=== PATIENT | female | born 1985 | race African-American/Black ===

== ENCOUNTER 2017-08-22 16:07 | Inpatient (IN) | payer OTHER ==
[~2017-08-22] VITALS: Ht 152.4 cm; Wt 78.9 kg
[2017-08-22] MEDS: TERBUTALINE SULFATE 1MG/ML VIAL SUBCUT PRN ×2 (16:48→17:58)
[2017-08-22] MEDS: LACTATED RINGERS 1,000 ML IV SCH ×4 (17:03→23:51)
[2017-08-22 17:05] LABS: BASOPHILS % 0.3 % (0.0-2.0); EOSINOPHILS % 0.5 % (0.0-5.0); HEMATOCRIT. 32.5 % (36.0-48.0); HEMOGLOBIN. 10.8 g/dL (12.0-16.0); LYMPHOCYTES % 16.7 % (20.0-50.0); MEAN CORPUSCULAR HEMOGLOBIN 28.6 pg (28.0-32.0); MEAN PLATELET VOLUME 10.1 fl (7.4-10.4); MONOCYTES % 8.7 % (2.0-8.0); NEUTROPHILS % 73.8 % (40.0-76.0); PLATELET 179 x1000/uL (130-400); RED BLOOD CELL COUNT 3.78 mill/uL (4.2-5.4); RED CELL DISTRIBUTION WIDTH 13.9 % (11.6-14.6)
[2017-08-22] MEDS ORDERED: DEXT 5%/LR + PITOCIN 20UNITS/L 1,000 ML IV SCH (17:13)
[2017-08-22] MEDS ORDERED: BUTORPHANOL TARTRATE 2 MG/ML VIAL IV PRN (17:15)
[2017-08-22] MEDS ORDERED: CARBOPROST TROMETHAMINE 250 MCG/ML AMPUL IM PRN (17:15)
[2017-08-22] MEDS ORDERED: METHYLERGONOVINE MALEATE 0.2 MG/ML IM PRN (17:15)
[2017-08-22] MEDS ORDERED: PNV1TABL76 PO (17:41)
[2017-08-22] MEDS ORDERED: METR250T PO (17:41)
[2017-08-22] MEDS ORDERED: PROG200C7 PO (17:41)
[2017-08-22 19:16] LABS: CHLORIDE 104 mEq/L (98-107)
[2017-08-22 19:19] LABS: PARTIAL THROMBOPLASTIN TIME 28.7 sec (23.4-31.0)
[2017-08-22 19:35] LABS: CLARITY URINE CLEAR (CLEAR); COLOR URINE YELLOW (YELLOW); KETONES URINE 1+ (NEGATIVE); LEUKOCYTE ESTERASE URINE 3+ (NEGATIVE); NITRITE URINE NEGATIVE (NEGATIVE); OCCULT BLOOD URINE 3+ (NEGATIVE); PH URINE 5.5 (4.5-8.0); PROTEIN URINE NEGATIVE (NEGATIVE); SPECIFIC GRAVITY URINE 1.008 (1.005-1.030); UROBILINOGEN URINE 0.2 E.U./dL (0.2-1.0)
[2017-08-22 19:54] LABS: *AMPHETAMINES SCREEN URINE NEGATIVE (NEGATIVE); *BARBITURATES SCREEN URINE NEGATIVE (NEGATIVE); CANNABINOID URINE SCREEN NEGATIVE (NEGATIVE); OPIATES URINE SCREEN NEGATIVE (NEGATIVE); PHENCYCLIDINE URINE SCREEN NEGATIVE (NEGATIVE)
[2017-08-22 19:55] LABS: *BENZODIAZEPINES SCREEN URINE NEGATIVE (NEGATIVE); *COCAINE SCREEN URINE NEGATIVE (NEGATIVE); METHADONE URINE SCREEN NEGATIVE (NEGATIVE)
[2017-08-22] MEDS ORDERED: BUPIVACAINE HCL/NS/PF EPIDURAL 100 ML EP SCH (20:15)
[2017-08-22 20:31] LABS: HEPATITIS B SURFACE ANTIGEN NEGATIVE; RUBELLA IGG 13.5 IU/mL (4.99-10)
[2017-08-23] MEDS: LACTATED RINGERS 1,000 ML IV SCH (04:54)
[2017-08-23] MEDS ORDERED: DEXT 5%/LR + PITOCIN 20UNITS/L 1,000 ML IV SCH (05:38)
[2017-08-23] MEDS ORDERED: OXYCODONE HCL/ACETAMINOPHEN 5/325MG TABLET PO PRN (05:45)
[2017-08-23] MEDS ORDERED: IBUPROFEN 400MG TABLET PO PRN (05:45)
[2017-08-23 08:00] VITALS: BP 93/49
[2017-08-23] MEDS ORDERED: PRENATAL VIT/FE FUMARATE/FA TABLET PO SCH (09:00)
[2017-08-23] MEDS ORDERED: TETANUS, DIPHTHERIA, PERTUSSIS VAC/PF 0.5ML (>7YR OLD) IM ONE (09:45)
[2017-08-23 12:00] VITALS: BP 107/62
[2017-08-23 16:00] VITALS: BP 100/47
[2017-08-23 20:00] VITALS: BP 104/67
[2017-08-24] VITALS: BP 98/65
[2017-08-24 04:00] VITALS: BP 109/61
[2017-08-24 07:54] LABS: BASOPHILS % 0.4 % (0.0-2.0); EOSINOPHILS % 0.9 % (0.0-5.0); HEMOGLOBIN. 9.4 g/dL (12.0-16.0); LYMPHOCYTES % 15.4 % (20.0-50.0); MEAN CORPUSCULAR HEMOGLOBIN 28.5 pg (28.0-32.0); MEAN CORPUSCULAR VOLUME 87.8 fL (81.0-99.0); MEAN PLATELET VOLUME 10.8 fl (7.4-10.4); MONOCYTES % 9.4 % (2.0-8.0); NEUTROPHILS % 73.9 % (40.0-76.0); PLATELET 158 x1000/uL (130-400)
[2017-08-24 10:47] VITALS: BP 116/67
[2017-08-24] MEDS ORDERED: FERROUS SULFATE 325MG TABLET PO SCH (12:10)
== END 2017-08-24 11:10 | disposition home or self-care (01) | DRG 981 ==
LOC: OBSVTOIN 16:07 → L&D 16:07 → 6EST 08-23 09:00
PROVIDERS: ADMIT Specialist; ATTEND Specialist
PROC: 10E0XZZ Delivery of Products of Conception, External Approach (ICD-10-PCS; 2017-08-22)
PROC: 0UCC7ZZ Extirpation of Matter from Cervix, Via Natural or Artificial Opening (ICD-10-PCS; principal; 2017-08-22 05:02)
DX: O36.4XX0 Maternal care for intrauterine death, not applicable or unspecified (principal); O60.02 Preterm labor without delivery, second trimester; O86.20 Urinary tract infection following delivery, unspecified; D64.9 Anemia, unspecified; O99.03 Anemia complicating the puerperium; O32.8XX0 Maternal care for other malpresentation of fetus, not applicable or unspecified; Z37.1 Single stillbirth; Z3A.22 22 weeks gestation of pregnancy
CPT/HCPCS: 36415; 76805; 80053; 80305; 81003; 85025; 85610; 85730; 86592; 86703; 86762; 86850; 86900; 87086; 87340; 88307; 90715; C1893; G0378; J2590; J3105; J3490; J7120; A4315